=== PATIENT | female | born 1985 | race Caucasian/White ===

== ENCOUNTER 2016-06-10 16:47 | Emergency (ER) | payer BC ==
[2016-06-10 17:13] VITALS: TEMP 98.2
[2016-06-10] MEDS ORDERED: ACETAMINOPHEN IV (For NPO) 1,000 MG in EMPTY BAG 1 BAG IVPB STA (19:20)
--- NOTE | 2016-06-10 19:22 | ED ---
Abdominal Pain HPI - General Chief Complaint: Abdominal Pain Stated Complaint: Abd Pain - Nausea Time Seen by Provider: 06/10/16 19:09 Source: patient, RN notes reviewed Mode of arrival: ambulatory Limitations: no limitations - History of Present Illness Initial Comments: Patient is a 31-year-old female presents to the emergency room for evaluation of epigastric pain. Patient states pain began last night. Patient states she is pain about every 5 minutes which last a few seconds. Patient states the pain feels like a sharp stabbing pain. Patient states she's been taking Tums, Pepto-Bismol, aspirin with no relief of symptoms. Patient states she's never had this pain before. Patient states the pain is her very nauseous. Patient denies vomiting. Patient denies diarrhea or constipation. Patient states she has a history of a cholecystectomy about 3 years ago denies any other abdominal surgeries. Patient states she's having 5 out of 10 intermittent pain. Patient denies chest pain shortness of breath. Patient denies headache or dizziness. Patient denies pain or burning during urination, trouble urinating or blood in urine. Patient denies back or flank pain. Patient does state that her last menstrual period was 04/23/16. Patient states she could be but her at- home tests have been negative. Patient denies any history of STDs. - Related Data Home Medications Medication Instructions Recorded Confirmed Cholecalciferol [Vitamin D3] 1,000 unit PO DAILY 06/10/16 06/10/16 Cyanocobalamin [Vitamin B-12] 500 mcg PO DAILY 06/10/16 06/10/16 L.acidoph,Paracasei, B.lactis 1 cap PO DAILY 06/10/16 06/10/16 [Probiotic] Pnv with Ca,No.72/Iron/FA 1 tab PO DAILY 06/10/16 06/10/16 [ Plus Tablet] Vitex Supplement 1 tab PO DAILY 06/10/16 06/10/16 Previous Rx's Medication Instructions Recorded Famotidine [Pepcid] 20 mg PO DAILY PRN #10 tablet 06/10/16 Metoclopramide [Reglan] 5 mg PO TID PRN #12 tab 06/10/16 Nitrofurantoin Monohyd/M-Cryst 100 mg PO Q12HR 5 Days 06/10/16 [Macrobid] Allergies Allergy/AdvReac Type Severity Reaction Status Date / Time No Known Allergies Allergy Verified 06/10/16 19:37 Review of Systems ROS Statement: Those systems with pertinent positive or pertinent negative responses have been documented in the HPI. ROS Other: All systems not noted in ROS Statement are negative. Past Medical History Past Medical History: No Reported History History of Any Multi-Drug Resistant Organisms: None Reported Past Surgical History: Cholecystectomy Past Psychological History: Anxiety, Depression Smoking Status: Never smoker Past Alcohol Use History: Occasional Past Drug Use History: None Reported General Exam - General Exam Comments Initial Comments: Sitting in exam room in no acute distress. Limitations: no limitations General appearance: alert, in no apparent distress Head exam: Present: atraumatic, normocephalic, normal inspection Eye exam: Present: normal appearance ENT exam: Present: normal exam Neck exam: Present: normal inspection Respiratory exam: Present: normal lung sounds bilaterally. Absent: respiratory distress Cardiovascular Exam: Present: normal rhythm, tachycardia, normal heart sounds GI/Abdominal exam: Present: soft, tenderness (Mid epigastric), normal bowel sounds. Absent: distended, guarding, rebound, rigid Extremities exam: Present: normal inspection Back exam: Present: normal inspection Neurological exam: Present: alert, oriented X3, CN II-XII intact, normal gait Psychiatric exam: Present: normal affect, normal mood Skin exam: Present: warm, dry, intact, normal color. Absent: rash Course Vital Signs 06/10/16 06/10/16 17:11 21:02 Temperature 98.2 F 98.2 F Pulse Rate 110 H 91 Respiratory 20 16 Rate Blood Pressure 125/81 121/66 O2 Sat by Pulse 98 99 Oximetry Medical Decision Making - Medical Decision Making Patient is a 31-year-old female since emergency room for evaluation of epigastric pain. Labs show no significant findings. Urinalysis suspicious for urinary tract infection. Will send patient home with Pepcid, Reglan and antibiotics to treat for urinary tract infection. Advised patient to follow-up with her primary care provider for reevaluation in 24-48 hours. Patient states she understands everything that was discussed with her. Return parameters discussed. - Lab Data Result diagrams: 06/10/16 19:35 06/10/16 19:35 Lab Results 06/10/16 06/10/16 06/10/16 Range/Units 19:35 19:35 20:20 WBC 12.9 H (3.8-10.6) k/uL RBC 5.08 (3.80-5.40) m/uL Hgb 14.5 (11.4-16.0) gm/dL Hct 45.7 (34.0-46.0) % MCV 90.0 (80.0-100.0) fL MCH 28.4 (25.0-35.0) pg MCHC 31.6 (31.0-37.0) g/dL RDW 12.9 (11.5-15.5) % Plt Count 335 (150-450) k/uL Neutrophils % 83 % Lymphocytes % 10 % Monocytes % 5 % Eosinophils % 1 % Basophils % 1 % Neutrophils # 10.7 H (1.3-7.7) k/uL Lymphocytes # 1.3 (1.0-4.8) k/uL Monocytes # 0.6 (0-1.0) k/uL Eosinophils # 0.2 (0-0.7) k/uL Basophils # 0.1 (0-0.2) k/uL Sodium 142 (137-145) mmol/L Potassium 4.4 (3.5-5.1) mmol/L Chloride 105 (98-107) mmol/L Carbon Dioxide 26 (22-30) mmol/L Anion Gap 11 mmol/L BUN 14 (7-17) mg/dL Creatinine 0.67 (0.52-1.04) mg/dL Est GFR (MDRD) Af Amer >60 (>60 ml/min/1.73 sqM) Est GFR (MDRD) Non-Af >60 (>60 ml/min/1.73 sqM) Glucose 92 (74-99) mg/dL Calcium 9.4 (8.4-10.2) mg/dL Total Bilirubin 0.7 (0.2-1.3) mg/dL AST 23 (14-36) U/L ALT 36 (9-52) U/L Alkaline Phosphatase 96 (38-126) U/L Total Protein 7.1 (6.3-8.2) g/dL Albumin 4.2 (3.5-5.0) g/dL Amylase 55 (30-110) U/L Lipase 81 (23-300) U/L Urine Color Urine Appearance (Clear) Urine pH (5.0-8.0) Ur Specific [place] (1.001-1.035) Urine Protein (Negative) Urine Glucose (UA) (Negative) Urine Ketones (Negative) Urine Blood (Negative) Urine Nitrate (Negative) Urine Bilirubin (Negative) Urine Urobilinogen (<2.0) mg/dL Ur Leukocyte Esterase (Negative) Urine RBC (0-5) /hpf Urine WBC (0-5) /hpf Ur Squamous Epith Cells (0-4) /hpf Amorphous Sediment (None) /hpf Hyaline Casts (0-2) /lpf Urine Mucus (None) /hpf Urine HCG, Qual Not Detected (Not Detectd) 06/10/16 Range/Units 20:20 WBC (3.8-10.6) k/uL RBC (3.80-5.40) m/uL Hgb (11.4-16.0) gm/dL Hct (34.0-46.0) % MCV (80.0-100.0) fL MCH (25.0-35.0) pg MCHC (31.0-37.0) g/dL RDW (11.5-15.5) % Plt Count (150-450) k/uL Neutrophils % % Lymphocytes % % Monocytes % % Eosinophils % % Basophils % % Neutrophils # (1.3-7.7) k/uL Lymphocytes # (1.0-4.8) k/uL Monocytes # (0-1.0) k/uL Eosinophils # (0-0.7) k/uL Basophils # (0-0.2) k/uL Sodium (137-145) mmol/L Potassium (3.5-5.1) mmol/L Chloride (98-107) mmol/L Carbon Dioxide (22-30) mmol/L Anion Gap mmol/L BUN (7-17) mg/dL Creatinine (0.52-1.04) mg/dL Est GFR (MDRD) Af Amer (>60 ml/min/1.73 sqM) Est GFR (MDRD) Non-Af (>60 ml/min/1.73 sqM) Glucose (74-99) mg/dL Calcium (8.4-10.2) mg/dL Total Bilirubin (0.2-1.3) mg/dL AST (14-36) U/L ALT (9-52) U/L Alkaline Phosphatase (38-126) U/L Total Protein (6.3-8.2) g/dL Albumin (3.5-5.0) g/dL Amylase (30-110) U/L Lipase (23-300) U/L Urine Color Yellow Urine Appearance Clear (Clear) Urine pH 5.5 (5.0-8.0) Ur Specific [place] 1.030 (1.001-1.035) Urine Protein Trace H (Negative) Urine Glucose (UA) Negative (Negative) Urine Ketones Negative (Negative) Urine Blood Negative (Negative) Urine Nitrate Negative (Negative) Urine Bilirubin Negative (Negative) Urine Urobilinogen <2.0 (<2.0) mg/dL Ur Leukocyte Esterase Moderate H (Negative) Urine RBC <1 (0-5) /hpf Urine WBC 23 H (0-5) /hpf Ur Squamous Epith Cells 4 (0-4) /hpf Amorphous Sediment Rare H (None) /hpf Hyaline Casts 3 H (0-2) /lpf Urine Mucus Many H (None) /hpf Urine HCG, Qual (Not Detectd) Disposition Clinical Impression: Gastritis, Urinary tract infection Disposition: HOME SELF-CARE Condition: Good Instructions: Urinary Tract Infection in Women (ED), Gastritis (ED) Additional Instructions: Take medications as directed. Please follow up with primary care provider in 1- 2 days for reevaluation. If any new symptom arises, symptoms worsen or fever develops, return to ER as soon as possible. Prescriptions: Nitrofurantoin Monohyd/M-Cryst [Macrobid] 100 mg PO Q12HR 5 Days Famotidine [Pepcid] 20 mg PO DAILY PRN #10 tablet PRN Reason: Pain Metoclopramide [Reglan] 5 mg PO TID PRN #12 tab PRN Reason: Nausea Referrals: Jonathan Weiss DO [Primary Care Provider] - 1-2 days Time of Disposition: 20:58
[2016-06-10 19:41] LABS: Basophils # (A) 0.1 k/uL (0-0.2); Basophils % (A) 1 %; CH 29.6; Eosinophils # (A) 0.2 k/uL (0-0.7); Eosinophils % (A) 1 %; HCT 45.7 % (34.0-46.0); HDW 2.32; HGB 14.5 gm/dL (11.4-16.0); Luc # (Auto) 0.09; Luc % (Auto) 1; Lymphocytes # (A) 1.3 k/uL (1.0-4.8); Lymphocytes % (A) 10 %; MCH 28.4 pg (25.0-35.0); MCHC 31.6 g/dL (31.0-37.0); Mean Platelet Volume 6.9; Monocytes # (A) 0.6 k/uL (0-1.0); Monocytes % (A) 5 %; Neutrophils # (A) 10.7 k/uL (1.3-7.7); Neutrophils % (A) 83 %; RBC 5.08 m/uL (3.80-5.40); RDW 12.9 % (11.5-15.5); WBC 12.9 k/uL (3.8-10.6)
[2016-06-10 19:50] LABS: ALT 36 U/L (9-52); AST 23 U/L (14-36); Alkaline Phosphatase 96 U/L (38-126); Amylase 55 U/L (30-110); Anion Gap 11 mmol/L; Blood Urea Nitrogen 14 mg/dL (7-17); Calcium 9.4 mg/dL (8.4-10.2); Carbon Dioxide 26 mmol/L (22-30); Chloride 105 mmol/L (98-107); Glucose 92 mg/dL (74-99); Non-African American GFR(MDRD) >60 (>60 ml/min/1.73 sqM); Potassium 4.4 mmol/L (3.5-5.1); Sodium 142 mmol/L (137-145); Total Bilirubin 0.7 mg/dL (0.2-1.3); Total Protein 7.1 g/dL (6.3-8.2)
[2016-06-10] MEDS ORDERED: MAG HYDROX/AL HYDROX/SIMETH 30 ML, HYOSCYAMINE ELIXIR 10 ML, CIMETIDINE HCL 300 MG, LID... PO STA ×4 (20:38)
[2016-06-10 20:40] LABS: Amorphous Sediment,Urine Rare /hpf; Appearance,Urine Clear (Clear); Bilirubin,Urine Negative (Negative); Glucose,Urine (UA) Negative (Negative); Ketones,Urine Negative (Negative); Leukocyte Esterase,Urine Moderate (Negative); Mucus,Urine Many /hpf; Nitrite,Urine Negative (Negative); PH, Urine 5.5 (5.0-8.0); Particle Count 12870; Protein,Urine Trace (Negative); RBC,Urine <1 /hpf (0-5); Squamous Epithelial Cell,Urine 4 /hpf (0-4); UA Billing (MACRO vs. MICRO) MICRO; Urobilinogen,Urine <2.0 mg/dL (<2.0); WBC,Urine 23 /hpf (0-5)
[2016-06-10] MEDS ORDERED: FAMOTIDINE 20 MG/2 ML VIAL IV STA (20:57)
[2016-06-10 21:03] VITALS: BP 121/66; PULSE 91; RESP 16
[2016-06-10] MEDS ORDERED: METOCLOPRAMIDE 5 MG/ML 2 ML VIAL IVP STA (21:07)
== END 2016-06-10 21:17 | disposition home or self-care (01) ==
LOC: EC 16:47
DX: K29.70 Gastritis, unspecified, without bleeding (principal); N39.0 Urinary tract infection, site not specified; R00.0 Tachycardia, unspecified
CPT/HCPCS: 99284; 96374; 96375 ×2; 36415; 80053; 82150; 83690; 85025; 81001; 81025; J2765; J0131

== ENCOUNTER 2019-06-23 08:46 | Emergency (ER) | payer BC ==
[2019-06-23 09:04] VITALS: TEMP 98.3
[2019-06-23] MEDS ORDERED: KETOROLAC 30 MG/ML 1 ML VIAL IM STA (09:34)
--- NOTE | 2019-06-23 09:58 | XR ---
Left forearm and left hand 2 views of the left forearm and 3 views of the left hand. HISTORY: Trauma and pain Bone mineralization, joint spaces and alignment are maintained. Small ossific density at the volar as pect of the distal interphalangeal joint of the fourth digit measures 1 to 2 mm. IMPRESSION: Correlate for possible chip fracture volar aspect of the distal interphalangeal joint of the fourth digit of the left hand. No evident dislocation within the left hand or forearm.
--- NOTE | 2019-06-23 10:30 | ED ---
Upper Extremity HPI - General Chief Complaint: Extremity Injury, Upper Stated Complaint: lt wrist injury Time Seen by Provider: 06/23/19 09:20 Source: patient Mode of arrival: ambulatory Limitations: no limitations - History of Present Illness Initial Comments: 34-year-old female presenting today for chief complaint of left wrist pain after fall. Patient states that in the middle the night she woke up and tripped over a dog toy extending her left wrist. Patient denies any injury to the head neck back chest abdomen lower extremities or right upper extremity. Patient states that since she has had pain in the fourth digit as well as the wrist. Patient denies numbness tingling loss of sensation. She stated range of motion of the wrist she recently has a sharp shooting pain up towards the elbow. Patient denies any pain in the shoulder. Patient denies any pain out of proportion coolness or pallor of the extremity. Remaining review of systems negative upon arrival patient appears well no signs of acute distress. Patient is splinting the left wrist. - Related Data Home Medications Medication Instructions Recorded Confirmed Cholecalciferol [Vitamin D3] 1,000 unit PO DAILY 06/10/16 06/10/16 Cyanocobalamin [Vitamin B-12] 500 mcg PO DAILY 06/10/16 06/10/16 L.acidoph,Paracasei, B.lactis 1 cap PO DAILY 06/10/16 06/10/16 [Probiotic] Pnv,Calcium 72/Iron/Folic Acid 1 tab PO DAILY 06/10/16 06/10/16 [ Plus Tablet] Vitex Supplement 1 tab PO DAILY 06/10/16 06/10/16 Previous Rx's Medication Instructions Recorded Famotidine [Pepcid] 20 mg PO DAILY PRN #10 tablet 06/10/16 Metoclopramide [Reglan] 5 mg PO TID PRN #12 tab 06/10/16 Nitrofurantoin Monohyd/M-Cryst 100 mg PO Q12HR 5 Days cap 06/10/16 [Macrobid] Allergies Allergy/AdvReac Type Severity Reaction Status Date / Time No Known Allergies Allergy Verified 06/10/16 19:37 Review of Systems ROS Statement: Those systems with pertinent positive or pertinent negative responses have been documented in the HPI. ROS Other: All systems not noted in ROS Statement are negative. Past Medical History Past Medical History: No Reported History History of Any Multi-Drug Resistant Organisms: None Reported Past Surgical History: Cholecystectomy Past Psychological History: Anxiety, Depression Smoking Status: Never smoker Past Alcohol Use History: Occasional Past Drug Use History: None Reported General Exam - General Exam Comments Initial Comments: General: The patient is awake and alert, in no distress, and does not appear acutely ill. Eye: +3 mm pupils are equal, round and reactive to light, extra-ocular movements are intact. No nystagmus. There is normal conjunctiva bilaterally. No signs of icterus. No raccoon or Bales sign Cardiovascular: There is a regular rate and rhythm. No murmur, rub or gallop is appreciated. Respiratory: Lungs are clear to auscultation, respirations are non-labored, breath sounds are equal. No wheezes, stridor, rales, or rhonchi. Musculoskeletal: Upon inspection of the wrist bilaterally there is noted soft tissue swelling of the fourth left digit diffusely as well as the wrist. There is no gross deformity. No ecchymosis abrasions lacerations noted. Patient is able to fully flex at the MTP DIP PIP joint as well as extend no limitations in range of motion or strength. Patient is able to flex extend as well as supinate and pronate the wrist however this produces discomfort. Patient has scaphoid tenderness is appears mild to moderate. Patient has no point localized tenderness over the elbow. No shoulder or clavicle. Sensation intact proximal and distal to site of injury. Radial pulses +2 equal comparison bilaterally with soft and compressible compartments of the left upper extremity. Neurological: A&O x 3. CN II-XII intact, There are no obvious motor or sensory deficits. Coordination appears grossly intact. Speech is normal. Skin: Skin is warm and dry and no rashes or lesions are noted. Psychiatric: Cooperative, appropriate mood & affect, normal judgment. Limitations: no limitations Course Vital Signs 06/23/19 06/23/19 06/23/19 09:01 09:03 10:03 Temperature 98.3 F Pulse Rate 83 70 Respiratory 19 20 20 Rate Blood Pressure 121/75 118/72 O2 Sat by Pulse 99 98 Oximetry 06/23/19 10:47 Temperature Pulse Rate Respiratory 20 Rate Blood Pressure O2 Sat by Pulse Oximetry Medical Decision Making - Medical Decision Making 34-year-old female presenting today for chief complaint of left wrist pain after fall. Scaphoid tenderness no wrst or forearm fracture noted. Chip fracture of distal phalanx of the fourth digit there is no evidence of tendon injury obvious on physical examination. No openings in the skin patient is placed in thumb spica for the possible scaphoid tenderness with need for further evaluation by orthopedics. She was placed in a fourth digit finger splint of the left hand. Neurovascularly patient was intact both prior to and after splinting. At this time feel patient is still for discharge with outpatient orthopedic evaluation she is agreeable this care plan and is aware of the importance of follow-up and return parameters case discussed with attending provider Dr. Wilson Disposition Clinical Impression: Left wrist pain, Fall, Finger fracture, left, Fracture of distal phalanx of finger of left hand Disposition: HOME SELF-CARE Condition: Good Instructions (If sedation given, give patient instructions): Finger Fracture (ED), Scaphoid Fracture (ED) Additional Instructions: Please use medication as discussed. Please follow-up with orthopedic surgery within the next 2-3 days. Please return to emergency room if the symptoms increase or worsen or for any other concerns. Is patient prescribed a controlled substance at d/c from ED?: No Referrals: Paulina Tena MD [Primary Care Provider] - 1-2 days Raghav Navarro DO [Medical Doctor] - 1-2 days Time of Disposition: 10:30
[2019-06-23 10:46] VITALS: RESP 20
[2019-06-23 10:47] VITALS: BP 118/72; PULSE 70
== END 2019-06-23 10:48 | disposition home or self-care (01) ==
LOC: EC 08:46
DX: S62.635A Displaced fracture of distal phalanx of left ring finger, initial encounter for closed fracture (principal); M25.532 Pain in left wrist; W01.0XXA Fall on same level from slipping, tripping and stumbling without subsequent striking against object, initial encounter
CPT/HCPCS: 73090; 73130; 99283; 29125; 96372; J1885

== ENCOUNTER 2020-04-22 09:27 | Emergency (ER) | payer BC ==
[2020-04-22 09:33] VITALS: TEMP 99
[2020-04-22] MEDS ORDERED: ACET/COD 300 MG/30 MG STARTER PACK 6 TAB BTL PO STA (09:45)
--- NOTE | 2020-04-22 09:49 | ED ---
Chest Pain HPI - General Chief Complaint: Chest Pain Stated Complaint: lt sided pain Time Seen by Provider: 04/22/20 09:36 Source: patient Mode of arrival: wheelchair Limitations: no limitations - History of Present Illness Initial Comments: 34yo female presenting for cc of left rib pain that increased with movement/touch. Pt states that 2 week ago she noticed pain in left rib. patietn states that recently it has increased and now hurt when she twisted and turns ro lifts the left arm. she is not sure if she strained something. denies falls or direct trauma. patient states that area is tender to touch and increased with breathing. Denies leg swelling, denies exogenous hormone use, denies recent travel, immobilization, denies chest pain, chest pressure or SOB, Denies history of family history of DVT/PE. Denies hemoptysis. Denies cancer. Patient denies recent injuries fracture, calf pain. Patient denies nausea, vomiting, denies abdominal pain urinary changes, heamturia, fevers. Patient appears well nontoxic on arrival. - Related Data Home Medications Medication Instructions Recorded Confirmed Cholecalciferol [Vitamin D3] 1,000 unit PO DAILY 06/10/16 06/10/16 Cyanocobalamin [Vitamin B-12] 500 mcg PO DAILY 06/10/16 06/10/16 L.acidoph,Paracasei, B.lactis 1 cap PO DAILY 06/10/16 06/10/16 [Probiotic] Pnv,Calcium 72/Iron/Folic Acid 1 tab PO DAILY 06/10/16 06/10/16 [ Plus Tablet] Vitex Supplement 1 tab PO DAILY 06/10/16 06/10/16 Previous Rx's Medication Instructions Recorded Famotidine [Pepcid] 20 mg PO DAILY PRN #10 tablet 06/10/16 Metoclopramide [Reglan] 5 mg PO TID PRN #12 tab 06/10/16 Nitrofurantoin Monohyd/M-Cryst 100 mg PO Q12HR 5 Days cap 06/10/16 [Macrobid] Allergies Allergy/AdvReac Type Severity Reaction Status Date / Time No Known Allergies Allergy Verified 04/22/20 09:33 Review of Systems ROS Statement: Those systems with pertinent positive or pertinent negative responses have been documented in the HPI. ROS Other: All systems not noted in ROS Statement are negative. Past Medical History Past Medical History: No Reported History History of Any Multi-Drug Resistant Organisms: None Reported Past Surgical History: Cholecystectomy Past Psychological History: Anxiety, Depression Smoking Status: Never smoker Past Alcohol Use History: Occasional Past Drug Use History: None Reported General Exam - General Exam Comments Initial Comments: General: The patient is awake and alert, in no distress Eye: +3 mm pupils are equal, round and reactive to light, extra-ocular movements are intact. No nystagmus. There is normal conjunctiva bilaterally. No signs of icterus. Ears, nose, mouth and throat: There are moist mucous membranes and no oral lesions. Neck: The neck is supple, there is no tenderness or JVD. Cardiovascular: There is a regular rate and rhythm. No murmur, rub or gallop is appreciated. Respiratory: Lungs are clear to auscultation, respirations are non-labored, breath sounds are equal. No wheezes, stridor, rales, or rhonchi. Gastrointestinal: Soft, non-distended, No LUQ tenderness, no enlargement of spleen appreciated. non-tender abdomen without masses or organomegaly noted. There is no rebound or guarding present. No CVA tenderness. Musculoskeletal: Tender to touch mid ribcage, left sided-very point localized. increased wtih rotation, or lifting the left arm. No lymph nodes palpable. Normal ROM, no tenderness. Strength 5/5. Sensation intact. Radial and DP pulses equal bilaterally 2+. Neurological: A&O x 3. CN II-XII intact grossly, There are no obvious motor or sensory deficits. Coordination appears grossly intact. Speech is normal. Skin: Skin is warm and dry and no rashes or lesions are noted. No LE edema no calf pain Psychiatric: Cooperative, appropriate mood & affect, normal judgment. Limitations: no limitations Course Vital Signs 04/22/20 04/22/20 09:29 11:10 Temperature 99 F Pulse Rate 103 H 87 Respiratory 16 18 Rate Blood Pressure 114/76 106/69 O2 Sat by Pulse 99 97 Oximetry Chest Pain MDM - MDM 34yo female presenting for cc of rib pain. DImer (-) HR normalized. patient denies SOB. EKG no acute findings. Patient pain is very reproducible to movement and touch. no skin changes. pt case discussed with dr. colón who is agreeable to discharge. Disposition Clinical Impression: Rib pain on left side Disposition: HOME SELF-CARE Condition: Good Instructions (If sedation given, give patient instructions): Costochondritis (ED) Additional Instructions: Please use medication as discussed. Please follow-up with family doctor in the next 2 days. Please return to emergency room if the symptoms increase or worsen or for any other concerns. Is patient prescribed a controlled substance at d/c from ED?: No Referrals: Paulina Tena MD [Primary Care Provider] - 1-2 days Time of Disposition: 10:33
[2020-04-22 10:16] LABS: Basophils # (A) 0.1 k/uL (0-0.2); Basophils % (A) 1 %; Eosinophils # (A) 0.3 k/uL (0-0.7); Eosinophils % (A) 3 %; HCT 44.1 % (34.0-46.0); HGB 14.4 gm/dL (11.4-16.0); Lymphocytes # (A) 1.2 k/uL (1.0-4.8); Lymphocytes % (A) 14 %; MCH 29.4 pg (25.0-35.0); MCHC 32.7 g/dL (31.0-37.0); Mean Platelet Volume 6.4; Monocytes # (A) 0.4 k/uL (0-1.0); Monocytes % (A) 5 %; Neutrophils # (A) 6.7 k/uL (1.3-7.7); Neutrophils % (A) 76 %; Platelet Count 287 k/uL (150-450); RDW 13.1 % (11.5-15.5); WBC 8.7 k/uL (3.8-10.6)
[2020-04-22 10:26] LABS: ALT 31 U/L (4-34); AST 30 U/L (14-36); African American GFR (CKD) >90 (>60 ml/min/1.73 sqM); Albumin 3.9 g/dL (3.5-5.0); Alkaline Phosphatase 76 U/L (38-126); Anion Gap 7 mmol/L; Blood Urea Nitrogen 14 mg/dL (7-17); Calcium 8.8 mg/dL (8.4-10.2); Carbon Dioxide 23 mmol/L (22-30); Chloride 107 mmol/L (98-107); Glucose 95 mg/dL (74-99); Non-African American GFR(CKD) >90 (>60 ml/min/1.73 sqM); Potassium 4.4 mmol/L (3.5-5.1); Sodium 137 mmol/L (137-145); Total Bilirubin 0.5 mg/dL (0.2-1.3); Total Protein 6.7 g/dL (6.3-8.2)
--- NOTE | 2020-04-22 10:31 | XR ---
EXAMINATION TYPE: XR ribs LT w pa chest xray DATE OF EXAM: 04/22/2020 COMPARISON: NONE HISTORY: Left-sided rib pain TECHNIQUE: Frontal view of the chest and 4 views of the left ribs are submitted FINDINGS: The lungs are clear. Heart size normal. No pleural effusion, consolidation or pneumothorax surgical clips are seen in the gallbladder fossa. Visualized rib cage is intact. IMPRESSION: No acute displaced rib fracture.
[2020-04-22 11:11] VITALS: BP 106/69; PULSE 87; RESP 18
== END 2020-04-22 11:10 | disposition home or self-care (01) ==
LOC: EC 09:27
DX: R07.81 Pleurodynia (principal)
CPT/HCPCS: 36415; 80053; 85025; 85379; 93005; 99285

== ENCOUNTER 2020-04-25 19:17 | Emergency (ER) | payer BC ==
[2020-04-25] MEDS ORDERED: SODIUM CHLORIDE 0.9% 1,000 ML IV STA (21:12)
[2020-04-25] MEDS ORDERED: KETOROLAC 15 MG/ML 1 ML VIAL IVP STA (21:12)
[2020-04-25] MEDS ORDERED: ACETAMINOPHEN TAB 500 MG TAB PO STA (21:15)
--- NOTE | 2020-04-25 21:23 | ED ---
General Adult HPI - General Chief complaint: Abdominal Pain Stated complaint: Revisit,ABD pain Time Seen by Provider: 04/25/20 20:59 Source: patient Mode of arrival: ambulatory Limitations: no limitations - History of Present Illness Initial comments: 34-year-old female presents to the emergency Department with complaints of left flank pain accompanied by fever (T=100.9F). Patient states her pain began on Thursday and she was seen at that time, though she did not have a fever. Patient describes the pain as constant in nature and is worsened by laying on the affected side. Patient denies any recent rash, chills, cough, shortness of breath, chest pain, abdominal pain, nausea, vomiting, diarrhea, constipation, numbness, tingling, dizziness, weakness, hematuria, dysuria, urinary urgency, urinary frequency, headache, visual changes, or any other complaints. - Related Data Home Medications Medication Instructions Recorded Confirmed Cholecalciferol [Vitamin D3] 1,000 unit PO DAILY 06/10/16 04/25/20 Cyanocobalamin [Vitamin B-12] 500 mcg PO DAILY 06/10/16 04/25/20 Vitex Supplement 1 tab PO DAILY 06/10/16 04/25/20 Ascorbic Acid [Vitamin C] 1,000 mg PO DAILY 04/25/20 04/25/20 Liraglutide [Saxenda] 1.2 mg SQ DAILY 04/25/20 04/25/20 Lysine HCl [l-Lysine] 1,000 mg PO DAILY 04/25/20 04/25/20 Multivitamins, Thera [Multivitamin 1 tab PO DAILY 04/25/20 04/25/20 (formulary)] valACYclovir HCL [Valtrex] 1,000 mg PO BID PRN 04/25/20 04/25/20 Previous Rx's Medication Instructions Recorded Cyclobenzaprine [Flexeril] 10 mg PO TID #15 tab 04/25/20 Allergies Allergy/AdvReac Type Severity Reaction Status Date / Time No Known Allergies Allergy Verified 04/25/20 21:31 Review of Systems ROS Statement: Those systems with pertinent positive or pertinent negative responses have been documented in the HPI. ROS Other: All systems not noted in ROS Statement are negative. Past Medical History Past Medical History: No Reported History History of Any Multi-Drug Resistant Organisms: None Reported Past Surgical History: Cholecystectomy Past Psychological History: Anxiety, Depression Smoking Status: Never smoker Past Alcohol Use History: Occasional Past Drug Use History: None Reported General Exam Limitations: no limitations (Physical well-developed, well-nourished female in no acute distress. Initial temperature 100.9F, pulse 92, respirations 18, blood pressure 141/85, pulse ox 100% on room air.) General appearance: alert, in no apparent distress Respiratory exam: Present: normal lung sounds bilaterally, other (States pain is made worse with deep inspiration). Absent: respiratory distress, wheezes, rales, rhonchi, stridor Cardiovascular Exam: Present: regular rate, normal rhythm, normal heart sounds. Absent: systolic murmur, diastolic murmur, rubs, gallop, clicks GI/Abdominal exam: Present: soft, normal bowel sounds. Absent: distended, tenderness, guarding, rebound, rigid Back exam: Present: CVA tenderness (L). Absent: CVA tenderness (R) Neurological exam: Present: alert, oriented X3, CN II-XII intact Psychiatric exam: Present: normal affect, normal mood Skin exam: Present: warm, dry, intact, normal color. Absent: rash Course Vital Signs 04/25/20 04/25/20 19:39 23:44 Temperature 100.9 F H 97.6 F Pulse Rate 92 85 Respiratory 18 16 Rate Blood Pressure 141/85 122/78 O2 Sat by Pulse 100 100 Oximetry Medical Decision Making - Medical Decision Making 34-year-old female presents to the emergency Department with complaints of left flank pain that began 4 days ago. States pain originates under her left ribs and wraps around to her back and flank. States she did have a previous workup for this same complaint that ruled out cardiac cause. Patient is febrile this visit with an initial temperature of 100.9F; fever was treated and patient was given a liter of IV fluids along with Toradol for discomfort. Lab work and CT of the abdomen and pelvis showed no acute findings. Results were discussed with patient; she is agreeable to follow-up with her primary care provider for further evaluation. Patient was prescribed Flexeril and will continue to treat discomfort with OTC medications. Return parameters were discussed, patient verbalizes understanding and agrees with this plan. - Lab Data Result diagrams: 04/25/20 21:40 04/25/20 21:40 Lab Results 04/25/20 04/25/20 04/25/20 Range/Units 21:40 21:40 21:40 WBC 10.9 H (3.8-10.6) k/uL RBC 4.99 (3.80-5.40) m/uL Hgb 14.7 (11.4-16.0) gm/dL Hct 45.7 (34.0-46.0) % MCV 91.6 (80.0-100.0) fL MCH 29.5 (25.0-35.0) pg MCHC 32.2 (31.0-37.0) g/dL RDW 13.4 (11.5-15.5) % Plt Count 355 (150-450) k/uL MPV 6.3 Neutrophils % 72 % Lymphocytes % 19 % Monocytes % 4 % Eosinophils % 3 % Basophils % 0 % Neutrophils # 7.8 H (1.3-7.7) k/uL Lymphocytes # 2.1 (1.0-4.8) k/uL Monocytes # 0.5 (0-1.0) k/uL Eosinophils # 0.3 (0-0.7) k/uL Basophils # 0.0 (0-0.2) k/uL Sodium 138 (137-145) mmol/L Potassium 4.3 (3.5-5.1) mmol/L Chloride 107 (98-107) mmol/L Carbon Dioxide 24 (22-30) mmol/L Anion Gap 7 mmol/L BUN 11 (7-17) mg/dL Creatinine 0.71 (0.52-1.04) mg/dL Est GFR (CKD-EPI)AfAm >90 (>60 ml/min/1.73 sqM) Est GFR (CKD-EPI)NonAf >90 (>60 ml/min/1.73 sqM) Glucose 92 (74-99) mg/dL Calcium 9.1 (8.4-10.2) mg/dL Total Bilirubin 0.3 (0.2-1.3) mg/dL AST 31 (14-36) U/L ALT 38 H (4-34) U/L Alkaline Phosphatase 79 (38-126) U/L Total Protein 7.1 (6.3-8.2) g/dL Albumin 4.1 (3.5-5.0) g/dL Lipase 159 (23-300) U/L Urine Color Light Yellow Urine Appearance Clear (Clear) Urine pH 5.5 (5.0-8.0) Ur Specific [place] 1.010 (1.001-1.035) Urine Protein Negative (Negative) Urine Glucose (UA) Negative (Negative) Urine Ketones Negative (Negative) Urine Blood Negative (Negative) Urine Nitrite Negative (Negative) Urine Bilirubin Negative (Negative) Urine Urobilinogen <2.0 (<2.0) mg/dL Ur Leukocyte Esterase Small H (Negative) Urine RBC 1 (0-5) /hpf Urine WBC 2 (0-5) /hpf Ur Squamous Epith Cells 1 (0-4) /hpf Urine Bacteria Occasional H (None) /hpf Urine Mucus Rare H (None) /hpf Urine HCG, Qual (Not Detectd) 04/25/20 Range/Units 21:40 WBC (3.8-10.6) k/uL RBC (3.80-5.40) m/uL Hgb (11.4-16.0) gm/dL Hct (34.0-46.0) % MCV (80.0-100.0) fL MCH (25.0-35.0) pg MCHC (31.0-37.0) g/dL RDW (11.5-15.5) % Plt Count (150-450) k/uL MPV Neutrophils % % Lymphocytes % % Monocytes % % Eosinophils % % Basophils % % Neutrophils # (1.3-7.7) k/uL Lymphocytes # (1.0-4.8) k/uL Monocytes # (0-1.0) k/uL Eosinophils # (0-0.7) k/uL Basophils # (0-0.2) k/uL Sodium (137-145) mmol/L Potassium (3.5-5.1) mmol/L Chloride (98-107) mmol/L Carbon Dioxide (22-30) mmol/L Anion Gap mmol/L BUN (7-17) mg/dL Creatinine (0.52-1.04) mg/dL Est GFR (CKD-EPI)AfAm (>60 ml/min/1.73 sqM) Est GFR (CKD-EPI)NonAf (>60 ml/min/1.73 sqM) Glucose (74-99) mg/dL Calcium (8.4-10.2) mg/dL Total Bilirubin (0.2-1.3) mg/dL AST (14-36) U/L ALT (4-34) U/L Alkaline Phosphatase (38-126) U/L Total Protein (6.3-8.2) g/dL Albumin (3.5-5.0) g/dL Lipase (23-300) U/L Urine Color Urine Appearance (Clear) Urine pH (5.0-8.0) Ur Specific [place] (1.001-1.035) Urine Protein (Negative) Urine Glucose (UA) (Negative) Urine Ketones (Negative) Urine Blood (Negative) Urine Nitrite (Negative) Urine Bilirubin (Negative) Urine Urobilinogen (<2.0) mg/dL Ur Leukocyte Esterase (Negative) Urine RBC (0-5) /hpf Urine WBC (0-5) /hpf Ur Squamous Epith Cells (0-4) /hpf Urine Bacteria (None) /hpf Urine Mucus (None) /hpf Urine HCG, Qual Not Detected (Not Detectd) - Radiology Data Radiology results: report reviewed CT of the abdomen and pelvis was obtained with contrast. Impression per Dr. Ibrahim is no evidence of renal stone or obstruction. Normal appendix. Disposition Clinical Impression: Left flank pain Disposition: HOME SELF-CARE Condition: Good Instructions (If sedation given, give patient instructions): Flank Pain (ED) Additional Instructions: Rest. Continue regular home medications to treat pain. Take muscle relaxer as needed. Follow up with Primary care provider for recheck on Thursday. Return to the emergency department for any new, worsening, or concerning symptoms. Prescriptions: Cyclobenzaprine [Flexeril] 10 mg PO TID #15 tab Is patient prescribed a controlled substance at d/c from ED?: No Referrals: Paulina Tena MD [Primary Care Provider] - 1-2 days Time of Disposition: 23:54
[2020-04-25 21:50] LABS: Basophils % (A) 0 %; Eosinophils # (A) 0.3 k/uL (0-0.7); Eosinophils % (A) 3 %; HCT 45.7 % (34.0-46.0); HGB 14.7 gm/dL (11.4-16.0); Lymphocytes # (A) 2.1 k/uL (1.0-4.8); Lymphocytes % (A) 19 %; MCH 29.5 pg (25.0-35.0); MCHC 32.2 g/dL (31.0-37.0); MCV 91.6 fL (80.0-100.0); Mean Platelet Volume 6.3; Monocytes # (A) 0.5 k/uL (0-1.0); Monocytes % (A) 4 %; Neutrophils # (A) 7.8 k/uL (1.3-7.7); Neutrophils % (A) 72 %; Platelet Count 355 k/uL (150-450); RBC 4.99 m/uL (3.80-5.40); RDW 13.4 % (11.5-15.5); WBC 10.9 k/uL (3.8-10.6)
[2020-04-25 21:54] LABS: Appearance,Urine Clear (Clear); Bacteria,Urine Occasional /hpf; Bilirubin,Urine Negative (Negative); Blood,Urine Negative (Negative); Color,Urine Light Yellow; Glucose,Urine (UA) Negative (Negative); Ketones,Urine Negative (Negative); Leukocyte Esterase,Urine Small (Negative); Mucus,Urine Rare /hpf; Nitrite,Urine Negative (Negative); PH, Urine 5.5 (5.0-8.0); Protein,Urine Negative (Negative); RBC,Urine 1 /hpf (0-5); Squamous Epithelial Cell,Urine 1 /hpf (0-4); Urobilinogen,Urine <2.0 mg/dL (<2.0); WBC,Urine 2 /hpf (0-5)
[2020-04-25 21:58] LABS: ALT 38 U/L (4-34); AST 31 U/L (14-36); African American GFR (CKD) >90 (>60 ml/min/1.73 sqM); Albumin 4.1 g/dL (3.5-5.0); Alkaline Phosphatase 79 U/L (38-126); Anion Gap 7 mmol/L; Blood Urea Nitrogen 11 mg/dL (7-17); Calcium 9.1 mg/dL (8.4-10.2); Carbon Dioxide 24 mmol/L (22-30); Chloride 107 mmol/L (98-107); Glucose 92 mg/dL (74-99); Lipase 159 U/L (23-300); Non-African American GFR(CKD) >90 (>60 ml/min/1.73 sqM); Potassium 4.3 mmol/L (3.5-5.1); Sodium 138 mmol/L (137-145); Total Bilirubin 0.3 mg/dL (0.2-1.3); Total Protein 7.1 g/dL (6.3-8.2)
--- NOTE | 2020-04-25 23:12 | CT ---
EXAMINATION TYPE: CT abdomen pelvis w con DATE OF EXAM: 04/25/2020 COMPARISON: None HISTORY: pain CT DLP: 1747.90 mGycm Automated exposure control for dose reduction was used. CONTRAST: Performed with IV Contrast, patient injected with 100 mL of Isovue 300. The lung bases are clear. There is no pleural effusion. Heart size is normal. There is no pericardial effusion. Liver spleen stomach pancreas appear normal. There are clips from cholecystectomy. The bile ducts are not dilated. There is no adrenal mass. Kidneys show satisfactory contrast opacification. There is no hydronephrosi s. Ureters are not dilated. There is no retroperitoneal adenopathy. Appendix is posterior and medial and appears normal. Bladder distends smoothly. Uterus is anteverted. There is small amount of free fluid in the [place]. There is no evidence of pelvic mass. There is no mesenteric edema. There is no ascites or free air. Delayed images show normal renal excre tion. The bony pelvis is intact. Hip joints are intact. Lumbar vertebra have normal spacing and alignment. Posterior elements are intact. Facet joints are intact. I see no bony destructive process. IMPRESSION: No evidence of renal stone or obstruction. Normal appendix. Small amount of low-density free fluid in the pelvis is probably physiologic.
[2020-04-25 23:45] VITALS: BP 122/78; PULSE 85; RESP 16; TEMP 97.6
[2020-04-25] MEDS ORDERED: CYCLOBENZAPRINE 10MG STARTER 3 TAB BTL PO STA (23:50)
== END 2020-04-26 00:25 | disposition home or self-care (01) ==
LOC: EC 19:17
DX: R10.9 Unspecified abdominal pain (principal); R50.9 Fever, unspecified; Z79.84 Long term (current) use of oral hypoglycemic drugs; Z79.899 Other long term (current) drug therapy; Z90.49 Acquired absence of other specified parts of digestive tract; Z20.828 Contact with and (suspected) exposure to other viral communicable diseases
CPT/HCPCS: 36415; 80053; 83690; 85025; 81001; 81025; 74177; 99284; 96374; 96361; U0003; J1885; Q9967

== ENCOUNTER 2020-05-20 20:11 | Emergency (ER) | payer BC ==
[2020-05-20 20:14] VITALS: TEMP 99.2
--- NOTE | 2020-05-20 20:41 | ED ---
General Adult HPI - General Chief complaint: Chest Pain Stated complaint: Chest Pain Time Seen by Provider: 05/20/20 20:15 Source: patient, family, RN notes reviewed, old records reviewed Mode of arrival: ambulatory Limitations: no limitations - History of Present Illness Initial comments: 34-year-old female presenting for evaluation of substernal chest discomfort. Pain is been present throughout the day today. She does have associated mild dyspnea. No cough. No reported fever. Pain does not radiate. No associated nausea or vomiting. No abdominal pain. Patient has previous cholecystectomy. No known history of coronary artery disease, no history of DVT or PE. - Related Data Home Medications Medication Instructions Recorded Confirmed Cholecalciferol [Vitamin D3] 1,000 unit PO DAILY 06/10/16 04/25/20 Cyanocobalamin [Vitamin B-12] 500 mcg PO DAILY 06/10/16 04/25/20 Vitex Supplement 1 tab PO DAILY 06/10/16 04/25/20 Ascorbic Acid [Vitamin C] 1,000 mg PO DAILY 04/25/20 04/25/20 Liraglutide [Saxenda] 1.2 mg SQ DAILY 04/25/20 04/25/20 Lysine HCl [l-Lysine] 1,000 mg PO DAILY 04/25/20 04/25/20 Multivitamins, Thera [Multivitamin 1 tab PO DAILY 04/25/20 04/25/20 (formulary)] valACYclovir HCL [Valtrex] 1,000 mg PO BID PRN 04/25/20 04/25/20 Previous Rx's Medication Instructions Recorded Cyclobenzaprine [Flexeril] 10 mg PO TID #15 tab 04/25/20 Allergies Allergy/AdvReac Type Severity Reaction Status Date / Time No Known Allergies Allergy Verified 05/20/20 20:14 Review of Systems ROS Statement: Those systems with pertinent positive or pertinent negative responses have been documented in the HPI. ROS Other: All systems not noted in ROS Statement are negative. Past Medical History Past Medical History: No Reported History History of Any Multi-Drug Resistant Organisms: None Reported Past Surgical History: Cholecystectomy Past Psychological History: Anxiety, Depression Smoking Status: Former smoker Past Alcohol Use History: Occasional Past Drug Use History: None Reported General Exam Limitations: no limitations General appearance: alert, in no apparent distress Head exam: Present: atraumatic, normocephalic Eye exam: Present: normal appearance, PERRL ENT exam: Present: normal exam Neck exam: Present: normal inspection. Absent: tenderness, meningismus Respiratory exam: Present: normal lung sounds bilaterally. Absent: respiratory distress Cardiovascular Exam: Present: regular rate, normal rhythm GI/Abdominal exam: Present: soft. Absent: distended, tenderness, guarding, rebound, rigid Extremities exam: Present: normal inspection, normal capillary refill. Absent: pedal edema, calf tenderness Neurological exam: Present: alert, oriented X3, CN II-XII intact. Absent: motor sensory deficit Psychiatric exam: Present: normal affect, normal mood Skin exam: Present: warm, dry, intact. Absent: cyanosis, diaphoretic Course Vital Signs 05/20/20 20:11 Temperature 99.2 F Pulse Rate 92 Respiratory 22 Rate Blood Pressure 130/76 O2 Sat by Pulse 100 Oximetry EKG Findings - EKG Comments: EKG Findings:: EKG: Normal sinus rhythm with sinus arrhythmia, there is artifact in V6 and V5. No ST segment elevation, rate of 88, NC interval 152, QRS duration 90, QTC 411 Medical Decision Making - Medical Decision Making 34-year-old female with substernal discomfort. Patient is well-appearing with stable vitals. EKG sinus rhythm without ST segment elevation. Chest x-rays negative for acute cardiopulmonary disease. She has normal CBC, normal CMP, negative d-dimer, negative troponin. Patient is concerned that her symptoms may be attributed to coronavirus. This test is performed and results are pending. She will quarantine awaiting results. She will return with worsening or changing symptoms. She will follow-up with her primary care physician. - Lab Data Result diagrams: 05/20/20 20:35 05/20/20 20:35 Lab Results 05/20/20 05/20/20 05/20/20 Range/Units 20:35 20:35 20:35 WBC 10.1 (3.8-10.6) k/uL RBC 4.74 (3.80-5.40) m/uL Hgb 14.3 (11.4-16.0) gm/dL Hct 43.4 (34.0-46.0) % MCV 91.5 (80.0-100.0) fL MCH 30.1 (25.0-35.0) pg MCHC 32.9 (31.0-37.0) g/dL RDW 12.9 (11.5-15.5) % Plt Count 294 (150-450) k/uL MPV 6.3 Neutrophils % 70 % Lymphocytes % 17 % Monocytes % 6 % Eosinophils % 4 % Basophils % 1 % Neutrophils # 7.1 (1.3-7.7) k/uL Lymphocytes # 1.7 (1.0-4.8) k/uL Monocytes # 0.6 (0-1.0) k/uL Eosinophils # 0.4 (0-0.7) k/uL Basophils # 0.1 (0-0.2) k/uL PT 10.1 (9.0-12.0) sec INR 1.0 (<1.2) APTT 25.9 (22.0-30.0) sec D-Dimer 0.26 (<0.60) mg/L FEU Sodium 138 (137-145) mmol/L Potassium 4.2 (3.5-5.1) mmol/L Chloride 107 (98-107) mmol/L Carbon Dioxide 26 (22-30) mmol/L Anion Gap 5 mmol/L BUN 13 (7-17) mg/dL Creatinine 0.69 (0.52-1.04) mg/dL Est GFR (CKD-EPI)AfAm >90 (>60 ml/min/1.73 sqM) Est GFR (CKD-EPI)NonAf >90 (>60 ml/min/1.73 sqM) Glucose 72 L (74-99) mg/dL Calcium 9.3 (8.4-10.2) mg/dL Magnesium 2.1 (1.6-2.3) mg/dL Total Bilirubin 0.2 (0.2-1.3) mg/dL AST 26 (14-36) U/L ALT 26 (4-34) U/L Alkaline Phosphatase 66 (38-126) U/L Troponin I (0.000-0.034) ng/mL Total Protein 6.7 (6.3-8.2) g/dL Albumin 4.0 (3.5-5.0) g/dL Lipase 202 (23-300) U/L 05/20/20 Range/Units 20:35 WBC (3.8-10.6) k/uL RBC (3.80-5.40) m/uL Hgb (11.4-16.0) gm/dL Hct (34.0-46.0) % MCV (80.0-100.0) fL MCH (25.0-35.0) pg MCHC (31.0-37.0) g/dL RDW (11.5-15.5) % Plt Count (150-450) k/uL MPV Neutrophils % % Lymphocytes % % Monocytes % % Eosinophils % % Basophils % % Neutrophils # (1.3-7.7) k/uL Lymphocytes # (1.0-4.8) k/uL Monocytes # (0-1.0) k/uL Eosinophils # (0-0.7) k/uL Basophils # (0-0.2) k/uL PT (9.0-12.0) sec INR (<1.2) APTT (22.0-30.0) sec D-Dimer (<0.60) mg/L FEU Sodium (137-145) mmol/L Potassium (3.5-5.1) mmol/L Chloride (98-107) mmol/L Carbon Dioxide (22-30) mmol/L Anion Gap mmol/L BUN (7-17) mg/dL Creatinine (0.52-1.04) mg/dL Est GFR (CKD-EPI)AfAm (>60 ml/min/1.73 sqM) Est GFR (CKD-EPI)NonAf (>60 ml/min/1.73 sqM) Glucose (74-99) mg/dL Calcium (8.4-10.2) mg/dL Magnesium (1.6-2.3) mg/dL Total Bilirubin (0.2-1.3) mg/dL AST (14-36) U/L ALT (4-34) U/L Alkaline Phosphatase (38-126) U/L Troponin I <0.012 (0.000-0.034) ng/mL Total Protein (6.3-8.2) g/dL Albumin (3.5-5.0) g/dL Lipase (23-300) U/L Disposition Clinical Impression: Chest pain Disposition: HOME SELF-CARE Condition: Good Instructions (If sedation given, give patient instructions): Chest Pain (ED) Additional Instructions: Please quarantined while awaiting coronavirus test results. Please return to emergency department with worsening or changing symptoms. Is patient prescribed a controlled substance at d/c from ED?: No Referrals: Paulina Tena MD [Primary Care Provider] - 1-2 days Time of Disposition: 21:32
[2020-05-20 20:44] LABS: Basophils # (A) 0.1 k/uL (0-0.2); Basophils % (A) 1 %; Eosinophils # (A) 0.4 k/uL (0-0.7); Eosinophils % (A) 4 %; HCT 43.4 % (34.0-46.0); HGB 14.3 gm/dL (11.4-16.0); Lymphocytes # (A) 1.7 k/uL (1.0-4.8); Lymphocytes % (A) 17 %; MCH 30.1 pg (25.0-35.0); MCHC 32.9 g/dL (31.0-37.0); MCV 91.5 fL (80.0-100.0); Mean Platelet Volume 6.3; Monocytes # (A) 0.6 k/uL (0-1.0); Monocytes % (A) 6 %; Neutrophils # (A) 7.1 k/uL (1.3-7.7); Neutrophils % (A) 70 %; Platelet Count 294 k/uL (150-450); RBC 4.74 m/uL (3.80-5.40); RDW 12.9 % (11.5-15.5); WBC 10.1 k/uL (3.8-10.6)
--- NOTE | 2020-05-20 20:48 | XR ---
EXAMINATION TYPE: XR chest 2V DATE OF EXAM: 05/20/2020 COMPARISON: 04/22/2020 HISTORY: Chest pain TECHNIQUE: FINDINGS: Heart and mediastinum are normal. Lungs are clear. Diaphragm is normal. Bony thorax appears normal. IMPRESSION: Normal chest. No change.
[2020-05-20 20:53] LABS: ALT 26 U/L (4-34); AST 26 U/L (14-36); African American GFR (CKD) >90 (>60 ml/min/1.73 sqM); Alkaline Phosphatase 66 U/L (38-126); Anion Gap 5 mmol/L; Blood Urea Nitrogen 13 mg/dL (7-17); Calcium 9.3 mg/dL (8.4-10.2); Carbon Dioxide 26 mmol/L (22-30); Chloride 107 mmol/L (98-107); Glucose 72 mg/dL (74-99); Lipase 202 U/L (23-300); Magnesium 2.1 mg/dL (1.6-2.3); Non-African American GFR(CKD) >90 (>60 ml/min/1.73 sqM); Potassium 4.2 mmol/L (3.5-5.1); Sodium 138 mmol/L (137-145); Total Bilirubin 0.2 mg/dL (0.2-1.3); Total Protein 6.7 g/dL (6.3-8.2)
[2020-05-20 21:22] LABS: D-Dimer 0.26 mg/L FEU (<0.60); Partial Thromboplastin Time 25.9 sec (22.0-30.0); Prothrombin Time 10.1 sec (9.0-12.0)
[2020-05-20 21:37] VITALS: BP 114/69; PULSE 89; RESP 18
== END 2020-05-20 21:44 | disposition home or self-care (01) ==
LOC: EC 20:11
DX: R07.9 Chest pain, unspecified (principal); F41.9 Anxiety disorder, unspecified; F32.9 Major depressive disorder, single episode, unspecified; Z79.899 Other long term (current) drug therapy; Z20.828 Contact with and (suspected) exposure to other viral communicable diseases; Z87.891 Personal history of nicotine dependence
CPT/HCPCS: 36415; 93005; 85379; 80053; 83690; 83735; 84484; 85025; 85610; 85730; 71046; 99285; U0003

== ENCOUNTER → 2020-08-28 | Outpatient (CLI) | payer BC ==
[2020-08-28 11:33] LABS: African American GFR (CKD) 112.3 (60.0-200.0); Albumin 4.3 g/dL (3.80-4.90); Albumin/Globulin Ratio 1.87 (1.60-3.17); Anion Gap 7.3 mmol/L (4.00-12.00); Calcium 9.1 mg/dL (8.7-10.3); Carbon Dioxide 24.7 mmol/L (21.6-31.8); Globulin 2.3 g/dL (1.6-3.3); Non-African American GFR(CKD) 96.9 (60.0-200.0); Potassium 4.7 mmol/L (3.5-5.5); Total Bilirubin 0.3 mg/dL (0.3-1.2); Total Protein 6.6 g/dL (6.2-8.2)
[2020-08-28 11:42] LABS: HGB 14.2 g/dL (12.0-15.0); MCHC 31.6 g/dL (32.0-37.0); Platelet Count 416 X 10*3/uL (140-440); RBC 4.89 X 10*6/uL (4.10-5.20); RDW 12.9 % (11.5-14.5); WBC 9.87 X 10*3/uL (4.50-10.00)
[2020-08-28 11:46] LABS: Prolactin 8.4 ng/mL (2.8-29.2); T4, Free (Free Thyroxine) 1.1 ng/dL (0.80-1.80)
[2020-08-28 14:29] LABS: ACTH <5.00 pg/mL (0.00-45.99)
[2020-08-28 16:07] LABS: Thyroid Peroxidase Antibodies 35.8 U/mL (0.0-60.0)
== END | disposition home or self-care (01) ==
LOC: LABWHC1 08:03
PROVIDERS: ATTEND Internal Medicine Endocrinology, Diabetes & Metabolism
DX: R53.83 Other fatigue (principal)
CPT/HCPCS: 36415; 80053; 82024; 82533; 82607; 84146; 84439; 84443; 84481; 85027; 86376

== ENCOUNTER 2020-09-17 11:33 | Emergency (ER) | payer BC ==
[2020-09-17 12:05] VITALS: RESP 18
--- NOTE | 2020-09-17 12:51 | XR ---
EXAMINATION TYPE: XR ankle complete RT, XR foot complete RT DATE OF EXAM: 09/17/2020 CLINICAL HISTORY: Pain after trip and fall injury. TECHNIQUE: Frontal, lateral and oblique images of the right ankle and foot are obtained. COMPARISON: None. FINDINGS: There is no acute fracture/dislocation evident in the right ankle. The ankle mortise appe ars within normal limits. Mild soft tissue swelling over medial malleolus. There is no acute fracture or dislocation evident in the right foot. The joint spaces in the right f oot are preserved. Moderate size inferior calcaneal spur. Overlying soft tissue is unremarkable. IMPRESSION: There is no acute fracture or dislocation in the right ankle or foot.
[2020-09-17] MEDS ORDERED: IBUPROFEN 600 MG TAB PO STA (13:02)
--- NOTE | 2020-09-17 13:23 | ED ---
General Adult HPI - General Chief complaint: Extremity Injury, Lower Stated complaint: rt ankle/foot injury Time Seen by Provider: 09/17/20 12:33 Source: patient, RN notes reviewed Mode of arrival: wheelchair Limitations: physical limitation - History of Present Illness Initial comments: 35-year-old female without any significant past medical history presents to the emergency room for a chief complaint of right ankle injury. Patient reports that she twisted her right ankle today. Patient states that she was climbing up to restart her Internet modem. When she stepped down she stepped on a children's toy and she injured her ankle. Patient states this started this morning. She states that it is painful to walk on that she is able to do so. She denies any other injuries.Patient has no other complaints at this time including shortness of breath, chest pain, abdominal pain, nausea or vomiting, headache, or visual changes. - Related Data Home Medications Medication Instructions Recorded Confirmed Cholecalciferol [Vitamin D3] 1,000 unit PO DAILY 06/10/16 04/25/20 Cyanocobalamin [Vitamin B-12] 500 mcg PO DAILY 06/10/16 04/25/20 Vitex Supplement 1 tab PO DAILY 06/10/16 04/25/20 Ascorbic Acid [Vitamin C] 1,000 mg PO DAILY 04/25/20 04/25/20 Liraglutide [Saxenda] 1.2 mg SQ DAILY 04/25/20 04/25/20 Lysine HCl [l-Lysine] 1,000 mg PO DAILY 04/25/20 04/25/20 Multivitamins, Thera [Multivitamin 1 tab PO DAILY 04/25/20 04/25/20 (formulary)] valACYclovir HCL [Valtrex] 1,000 mg PO BID PRN 04/25/20 04/25/20 Previous Rx's Medication Instructions Recorded Cyclobenzaprine [Flexeril] 10 mg PO TID #15 tab 04/25/20 Allergies Allergy/AdvReac Type Severity Reaction Status Date / Time No Known Allergies Allergy Verified 09/17/20 12:04 Review of Systems ROS Statement: Those systems with pertinent positive or pertinent negative responses have been documented in the HPI. ROS Other: All systems not noted in ROS Statement are negative. Past Medical History Past Medical History: No Reported History History of Any Multi-Drug Resistant Organisms: None Reported Past Surgical History: Cholecystectomy Additional Past Surgical History / Comment(s): uterine Ablation Past Psychological History: Anxiety, Depression Smoking Status: Former smoker Past Alcohol Use History: Occasional Past Drug Use History: None Reported General Exam Limitations: physical limitation General appearance: alert, in no apparent distress Head exam: Present: atraumatic, normocephalic, normal inspection Eye exam: Present: normal appearance, PERRL, EOMI. Absent: scleral icterus, conjunctival injection, periorbital swelling ENT exam: Present: normal exam, mucous membranes moist Neck exam: Present: normal inspection, full ROM. Absent: tenderness, meningismus, lymphadenopathy Respiratory exam: Present: normal lung sounds bilaterally. Absent: respiratory distress, wheezes, rales, rhonchi, stridor Cardiovascular Exam: Present: regular rate, normal rhythm, normal heart sounds. Absent: systolic murmur, diastolic murmur, rubs, gallop, clicks GI/Abdominal exam: Present: soft, normal bowel sounds. Absent: distended, tenderness, guarding, rebound, rigid Extremities exam: Present: full ROM (Patient does have pain with range of motion of the right ankle but is able to complete full range of motion.), tenderness (Tenderness to the medial malleolus of the right ankle. No tenderness to the lateral malleolus. No foot tenderness.), normal capillary refill (Capillary refill less than 2 seconds, DP pulse 2+.), joint swelling (Minimal edema on the right ankle.), other (Sensation intact right lower extremity.) Neurological exam: Present: alert Course Vital Signs 09/17/20 12:02 Temperature 98.2 F Pulse Rate 82 Respiratory 18 Rate Blood Pressure 123/71 O2 Sat by Pulse 99 Oximetry Procedures - Orthopedic Splinting/Casting Injury #1 Side: right Lower Extremity Injury Location: ankle Lower Extremity Immobilizer: AirCast Medical Decision Making - Medical Decision Making X-ray of the foot and ankle are negative. Patient was laced and an Aircast. Recommend Motrin Tylenol and rice therapy. Recommend she follow up with orthopedics. Disposition Clinical Impression: Ankle pain, right Disposition: HOME SELF-CARE Condition: Good Instructions (If sedation given, give patient instructions): Ankle Sprain (ED) Additional Instructions: Please take Motrin and Tylenol for pain. Please rest ice and elevate the ankle. Follow-up with your doctor or orthopedics in one to 2 days. Return to the emergency room for any worsening symptoms. Is patient prescribed a controlled substance at d/c from ED?: No Referrals: Paulina Tena MD [Primary Care Provider] - 1-2 days Bernabe Canseco DO [Doctor of Osteopathic Medicine] - 1-2 days Time of Disposition: 13:22
[2020-09-17 13:42] VITALS: BP 126/80; PULSE 76; TEMP 98.1
== END 2020-09-17 13:41 | disposition home or self-care (01) ==
LOC: EC 11:33
DX: S99.911A Unspecified injury of right ankle, initial encounter (principal); X50.1XXA Overexertion from prolonged static or awkward postures, initial encounter; Y93.89 Activity, other specified; Z90.49 Acquired absence of other specified parts of digestive tract; F32.9 Major depressive disorder, single episode, unspecified; Z87.891 Personal history of nicotine dependence
CPT/HCPCS: 73610; 73630; 99283; L4350

== ENCOUNTER → 2020-09-25 | Outpatient (CLI) | payer BC ==
--- NOTE | 2020-09-25 09:46 | CT ---
EXAMINATION TYPE: CT ankle RT wo con DATE OF EXAM: 09/25/2020 COMPARISON: None HISTORY: RIGHT ANKLE PAIN CT DLP: 237.[address] of the right ankle with reconstruction imaging. TECHNIQUE: Unenhanced CT of the right ankle was performed with bone and soft tissue window settings s ubmitted in the axial coronal and sagittal planes. At a separate workstation 3-D TR imaging was obta ined. FINDINGS: I do not see evidence for fracture or dislocation. Ankle mortise is intact. No significant soft tissue swelling. Visualized ligamentous and tendinous structures are within normal limits. No fl uid collections. No osseous or soft tissue masses. IMPRESSION:1. No evidence for displaced fracture or dislocation.
== END | disposition home or self-care (01) ==
LOC: RADCTMAIN 08:40
PROVIDERS: ATTEND Physician Assistant
DX: S90.01XA Contusion of right ankle, initial encounter (principal)

== ENCOUNTER → 2020-11-29 | Outpatient (CLI) | payer BC ==
[2020-11-29 11:06] LABS: HGB 14.4 g/dL (12.0-15.0); MCH 28.7 pg (27.0-32.0); MCV 89.6 fL (80.0-97.0); Mean Platelet Volume 8.9 fL (9.5-12.2); Platelet Count 385 X 10*3/uL (140-440); RBC 5.02 X 10*6/uL (4.10-5.20); WBC 10.36 X 10*3/uL (4.50-10.00)
[2020-11-29 14:00] LABS: African American GFR (CKD) 131.9 (60.0-200.0); Albumin 4.4 g/dL (3.80-4.90); Albumin/Globulin Ratio 1.76 (1.60-3.17); Anion Gap 9.4 mmol/L (4.00-12.00); BUN/Creat Ratio 15.71 Ratio (12.00-20.00); Calcium 9.5 mg/dL (8.7-10.3); Carbon Dioxide 24.6 mmol/L (21.6-31.8); Globulin 2.5 g/dL (1.6-3.3); Non-African American GFR(CKD) 113.8 (60.0-200.0); Potassium 4.6 mmol/L (3.5-5.5); Total Bilirubin 0.3 mg/dL (0.3-1.2); Total Protein 6.9 g/dL (6.2-8.2)
[2020-11-29 14:08] LABS: Prolactin 4.6 ng/mL (2.8-29.2); T4, Free (Free Thyroxine) 1.2 ng/dL (0.80-1.80)
[2020-11-29 14:10] LABS: Thyroid Peroxidase Antibodies 28.2 U/mL (0.0-60.0)
[2020-11-29 16:40] LABS: ACTH <5.00 pg/mL (0.00-45.99)
== END | disposition home or self-care (01) ==
LOC: LABWHC1 06:57
PROVIDERS: ATTEND Internal Medicine Endocrinology, Diabetes & Metabolism
DX: R53.83 Other fatigue (principal); R63.5 Abnormal weight gain
CPT/HCPCS: 36415; 80053; 82024; 82533; 82607; 84146; 84439; 84443; 84481; 85027; 86376

== ENCOUNTER → 2020-12-10 | Outpatient (CLI) | payer BC ==
[2020-12-10 19:18] LABS: Hemoglobin A1C 4.9 % (4.0-6.0)
== END | disposition home or self-care (01) ==
LOC: LABWHC1 13:35
PROVIDERS: ATTEND Internal Medicine Endocrinology, Diabetes & Metabolism
DX: R73.9 Hyperglycemia, unspecified (principal)
CPT/HCPCS: 36415; 83036

== ENCOUNTER → 2022-01-29 | Outpatient (CLI) | payer BC ==
[2022-01-29 21:52] LABS: Basophils # (A) 0.06 X 10*3/uL (0.00-0.10); Basophils % (A) 0.6 %; Eosinophils # (A) 0.12 X 10*3/uL (0.04-0.35); Eosinophils % (A) 1.2 %; HCT 44.9 % (37.2-46.3); HGB 14.3 g/dL (12.0-15.0); Immature Grans, Automated 0.3 %; Lymphocytes # (A) 1.28 X 10*3/uL (0.90-5.00); Lymphocytes % (A) 12.3 %; MCH 29.4 pg (27.0-32.0); MCHC 31.8 g/dL (32.0-37.0); MCV 92.4 fL (80.0-97.0); Monocytes % (A) 4.8 %; NRBC Per 100 WBC 0 /100 WBCS (0.0-0.0); Neutrophils # (A) 8.42 X 10*3/uL (1.80-7.70); Neutrophils % (A) 80.8 %; Platelet Count 381 X 10*3/uL (140-440); RBC 4.86 X 10*6/uL (4.10-5.20); RDW 12.9 % (11.5-14.5); WBC 10.41 X 10*3/uL (4.50-10.00)
[2022-01-30 14:43] LABS: Beef IgE <0.10 kU/L (<0.10); Beef IgE Class CLASS 0
== END | disposition home or self-care (01) ==
LOC: LABWHC1 13:52
PROVIDERS: ATTEND Allergy & Immunology
DX: T78.3XXA Angioneurotic edema, initial encounter (principal)
CPT/HCPCS: 36415; 85025; 86003; 86160